=== PATIENT | female | born 1935 | race Caucasian/White ===

== ENCOUNTER → 2016-12-30 | Outpatient (CLI) | payer MEDICARE, OTHER ==
[~2016-12-30] MED LIST: CITRACAL+D(315M1 TAB PO; CORDARONE,PACE200 MG PO; FEMARA 2.5 MG2.5 MG PO; KELP1 EACH PO; LOPRESSOR25 MG PO; NEURONTIN300 MG PO; PRILOSEC20 MG PO; PRINIVIL (ZESTR20 MG PO; PROZAC40 MG PO; SINGULAIR10 MG PO; TENORMIN50 MG PO; THERAGRAN-M1 TAB PO; XARELTO15 MG PO; ZOCOR20 MG PO
[2016-12-30 14:09] LABS: INR - (THERAPEUTIC) 0.99 (0.92-1.07); PROTIME 10.4 SECONDS (9.8-11.4)
[2016-12-30 14:19] LABS: ALBUMIN 3.9 gm/dL (3.5-5.0); ANION GAP 13.7 (10.0-19.0); CALCIUM 9.7 mg/dL (8.5-10.5); CREATININE 1.7 mg/dL (0.5-1.1); PHOSPHORUS 3.5 mg/dL (2.5-4.9); POTASSIUM 4.7 mMol/L (3.7-5.1)
== END | disposition disaster alternative care site (69) ==
LOC: GOPD 12-23 15:30
PROVIDERS: Radiology Diagnostic Radiology
PROC: 0T903ZX Drainage of Right Kidney, Percutaneous Approach, Diagnostic (ICD-10-PCS; principal; 2016-12-30)
DX: C64.1 Malignant neoplasm of right kidney, except renal pelvis (principal); N28.89 Other specified disorders of kidney and ureter